=== PATIENT | male | born 1945 | race Caucasian/White ===

== ENCOUNTER 2019-02-14 01:14 | Observation (INO) | payer MEDICARE, OTHER ==
[~2019-02-14] VITALS: Ht 185.4 cm; Wt 79.8 kg
[2019-02-14] VITALS (21 sets, daily range): BP systolic 71–133; BP diastolic 49–119
[~2019-02-14 01:14] MED LIST: ACETAMINOPHEN 500 MG TAB PO ONE; ASCO-182 PO; ASPI81TA94 PO; CELECOXIB 200 MG CAP PO ONE; CHOL10005 PO; PREGABALIN 75 MG CAPSULE PO ONE; SILD25TA6 PO
[2019-02-14] MEDS ORDERED: ROPIVACAINE 0.2% 400 MG/200ML 250 ML CONINFUS ONE (06:15)
[2019-02-14] MEDS ORDERED: FAMOTIDINE 20 MG TAB PO ONE (06:15)
[2019-02-14] MEDS ORDERED: ceFAZolin(*) 2GM/D5W 50ML 50 ML IVPB ONE (06:15)
[2019-02-14] MEDS ORDERED: NORMOSOL R SOLN(*) 1000 ML BAG 1,000 ML IV PRN (06:15)
[2019-02-14] MEDS ORDERED: LIDOCAINE/SOD BICARB 8.4% SYR ID ONE (06:15)
[2019-02-14] MEDS ORDERED: ROPIVACAINE/EPI/CLONIDINE/KET 50 ML SYRINGE INJ ONE (06:15)
[2019-02-14] MEDS ORDERED: MIDAZOLAM 2 MG/2 ML VIAL IVP PRN (06:15)
[2019-02-14] MEDS ORDERED: PREGABALIN 75 MG CAPSULE PO ONE (06:30)
[2019-02-14] MEDS ORDERED: CELECOXIB 200 MG CAP PO ONE (06:30)
[2019-02-14] MEDS ORDERED: ACETAMINOPHEN 500 MG TAB PO ONE (06:30)
[2019-02-14] MEDS ORDERED: ONDANSETRON 4 MG/2 ML VIAL ONE (09:20)
[2019-02-14] MEDS ORDERED: PROPOFOL EMUL(*) 10MG/ML 20 ML 20 ML ONE (09:20)
[2019-02-14] MEDS ORDERED: DEXAMETHASONE SOD PHOS 10MG/ML ONE (09:20)
[2019-02-14] MEDS ORDERED: ROPIVACAINE 0.2% 20 ML VIAL ONE (09:20)
[2019-02-14] MEDS ORDERED: ROPIVACAINE 0.5% 20 ML VIAL ONE (09:20)
--- NOTE | 2019-02-14 09:52 | RADIOLOGY IMAGING REPORT ---
FACILITY: [facility] [place] PATIENT NAME: Rojas Guillaume : 1945 MR: [id number] V: [id number] EXAM DATE: ORDERING PHYSICIAN: ABEBA BREAUX TECHNOLOG[place]: [place] [facility] [place] Rojas Guilla[place] : 1945 Visit/Account:[id number] Date of Sevice: 02/14/2019 Exam type: C-ARM FLUORO 1 HR History: LEFT TOTAL ANKLE ARTHROPLASTY Comparison: None. Findings: Two intraoperative some spot views of the ankle are submitted. There is no left or right marker to d etermine laterality. Images demonstrate a total ankle arthroplasty in good anatomic alignment. The total fluoroscopy dose is 0.78069 mGray per meter squared IMPRESSION: 1. As above Report Dictated By: Roz Lorenzo MD at 02/14/2019 9:43 AM Report E-Signed By: Roz Lorenzo MD at 02/14/2019 9:45 AM WSN:[email or web address]
[2019-02-14] MEDS ORDERED: fentaNYL CITR 100 MCG/2 ML AMP ONE (10:13)
[2019-02-14] MEDS ORDERED: KETOROLAC 30 MG/ML VIAL ONE (10:13)
[2019-02-14] MEDS ORDERED: MAGNESIUM CITRATE 300 ML BTL PO PRN (10:35)
[2019-02-14] MEDS ORDERED: ONDANSETRON 4 MG/2 ML VIAL IVP PRN (10:35)
[2019-02-14] MEDS ORDERED: KETOROLAC 30 MG/ML VIAL IVP PRN (10:35)
[2019-02-14] MEDS ORDERED: FLUSH 10 ML SYR IVP PRN (10:35)
[2019-02-14] MEDS ORDERED: KCL/D5LR 20 MEQ/1000 ML PREMIX 1,000 ML IV PRN (10:35)
[2019-02-14] MEDS ORDERED: BISACODYL 10 MG SUPP PR PRN (10:35)
[2019-02-14] MEDS ORDERED: PROMETHAZINE 25 MG/ML 1 ML AMP IVP PRN (10:35)
[2019-02-14] MEDS ORDERED: ACETAMINOPHEN 500 MG TAB PO PRN (10:35)
[2019-02-14] MEDS ORDERED: MAGNESIUM HYDROXIDE* 30ML UDCP PO PRN (10:35)
[2019-02-14] MEDS ORDERED: diphenhydrAMINE 25 MG CAP PO PRN (10:35)
[2019-02-14] MEDS ORDERED: oxyCODON/ACET (*)5/325MG (CII) 1 TAB TAB PO PRN (10:35)
--- NOTE | 2019-02-14 11:25 | OPERATIVE REPORT 1 ---
EVENT DATE: February 14, 2019 SURGEON: Trip Becerril MD ANESTHESIOLOGIST: Steven Denton MD ANESTHESIA: General. TICKET TAKER FERRYBOAT: Carlos Dawn PA-C PREOPERATIVE DIAGNOSIS Severe degenerative arthrosis of the ankle. POSTOPERATIVE DIAGNOSIS Severe degenerative arthrosis of the ankle. PROCEDURE PERFORMED Left total ankle replacement using the Integra Tornier ankle. TOURNIQUET TIME Under 2 hours. DESCRIPTION OF PROCEDURE The patient was brought to the operating room and placed in a supine position and a bump placed under the left hip, aligning the left lower extremity. The left lower extremity was prepped and draped in normal sterile fashion using Prevail. Sterile stockinettes, sterile U-drape, and sterile extremity drape were placed on the lower extremity. Stockinette was incised above the knee and held with Coban. An Esmarch was then used to exsanguinate the lower extremity. The tourniquet was turned up to 300 mmHg. An anterior incision was made just lateral to the anterior tibialis tendon. The skin was incised and bluntly dissected down to the subcutaneous tissue. The subcutaneous tissue was bluntly dissected down to the retinaculum. The retinaculum was incised and we identified the neurovascular bundle. It was pushed off laterally. We were able to go directly down to the ankle joint. We did subperiosteal dissection medially and laterally across the ankle without any difficulty. We were able to get into the ankle joint and found out there was significant degenerative arthrosis of the ankle with significant anterior spurring. The first thing we did was taken an osteotome and resect the anterior spurs off of the distal tibia. Once those were resected, I then placed my alignment guide starting at the tibial tuberosity. I made a small incision and then placed a pin down the tibial tuberosity and then placed our alignment guide. I brought the alignment guide down to the tibial plafond. Once I had identified exactly where the tibial plafond was, I set my second pin in the alignment guide just on the medial side. Once that aligned, I then brought the alignment guide up 8 mm from my resection. I then first trialed the #2 guide. When we placed a #2 on there, I brought fluoroscopy in, checked on AP, oblique, and lateral and found that we had I think good sizing with the #2. We aligned the rotation, we aligned the medial lateral and the varus valgus. Once that was completely lined up using fluoroscopy in both the AP and the lateral, I then pinned the [address] in [address]. Three on the medial side and three on the lateral side. We then used an oscillating saw to transect the distal tibia. Once that was resected, I took the 2 guide off, removed the pins, finished the medial and lateral gutter guide cuts with a osteotome. I removed then the distal tibia cut bone. Once that was completely removed, I then was able to look at my talus. Off of the tibial guide, I actually placed a talar pin under fluoroscopy to make sure we had good positioning of the talar pin which we did. I then placed my talar cutting guide on the on tibia. We used 2 paddles, we used lamina spreaders to make sure the paddles were both touching the top of the dome of the talus. I brought fluoroscopy in to make sure they were fitting correctly. Once they were fitting correctly, I then pinned my talar cutting jig. Once I had pinned my talar cutting jig, I removed the cutting jig and then we used the oscillating saw to transect the top of the talus over top of the pins using them as a guide. I then removed all of the pins. I removed the talar bone and removed any bone that was posteriorly in the ankle that was left from the tibial cutting. Once I was done, we then went to do our anterior chamfer. I placed the anterior chamfer guide in, checked on fluoroscopy and found that there were still a lot of osteophytes. I had removed the osteophytes off the anterior portion of the talus. Once that was done, I was able to get the talar cutting guide in the right position. I then pinned the talar cutting guide and then used the cutting jig to do my anterior chamfer. I removed the anterior cutting guide and anterior chamfer guide. I then used a rongeur to finish the anterior chamfer portion. At this point, we trialed a #2 8 mm tibia with the talar lateral chamfer cutting in. Once that was done, I brought fluoroscopy in, found that I had good position of the talus cutting guide. I then took the tibial implant out and then I drilled the prince hole into the lateral chamfer guide, placed the prince locking mechanism in. I then did the lateral chamfer without any difficulty using a reciprocal saw. Once the lateral chamfer was removed, I removed the lateral chamfer guide. At this point, we trialed our implants. We did a 2 tibia, 2 talus with an 8 mm. I thought there was still a lot of laxity. We went all the way up to 11 mm. At that point, there was still a little bit of verus laxity but I think it was appropriately held in position. Once that was determined on AP and lateral with the trial guides and the range of motion, we did an Achilles tendon lengthening. Three percutaneous holes were done through the posterior aspect of the Achilles getting now almost full motion, 20-degrees of dorsiflexion, 40-degrees of plantar flexion. At this point, we washed out with normal saline and then we placed out final implants. We did a 2 tibial, 11 mm poly with 2 talus. These again were all the Tornier Integra ankle. From here, we brought fluoroscopy in and made sure we had excellent alignment. Everything was in excellent alignment in AP and lateral. He did have an osteophyte on the lateral fibula which at this point, I made a small incision over the distal fibula, opened it up, and I was able to remove this lateral osteophyte without any difficulty. I left the distal fibular osteophyte due to the fact that most likely it was involved with the ligament. I just removed the lateral osteophyte to make it a little more easy to get into shoes. At this point, we closed the retinaculum back using 2-0 Vicryl. We then closed the skin using 3-0 Monocryl, 4-0 Monocryl, and Prineo adaptic 4 x 4s with bulky Hsieh dressing. The patient went to recovery. There were no complications. RICHARD
[2019-02-14] MEDS: ceFAZolin(*) 1 GM VIAL 1 GM in NS(*) 0.9% 100 ML MINI-BAG 100 ML IVPB SCH ×2 (15:08→22:43)
[2019-02-14] MEDS ORDERED: ceFAZolin(*) 1 GM VIAL 1 GM in NS(*) 0.9% 100 ML MINI-BAG 100 ML IVPB SCH (17:00)
--- NOTE | 2019-02-14 17:13 | NUR ---
Physical Therapy Impression Pt participated in extensive functional mobility training with multiple assistive devices and is safe for DC when medically appropriate. PT to follow-up tomorrow morning for additional gait and stair training. Physical Therapy Goals 1. Mod I bed mobility. 2. SBA transfers. 3. SBA gait with appropriate assistive device x 150'. 4. Ascend/descend 3 stairs CGA. 5. Independently maintain NWB to L LE. Patient's Goals
[2019-02-15 02:48] VITALS: BP 102/67
[2019-02-15] MEDS: ceFAZolin(*) 1 GM VIAL 1 GM in NS(*) 0.9% 100 ML MINI-BAG 100 ML IVPB SCH (06:36)
[2019-02-15 07:10] VITALS: BP 99/65
[2019-02-15 08:37] VITALS: Ht 185.4 cm; Wt 79.8 kg
--- NOTE | 2019-02-15 09:23 | DISCHARGE SUMMARY ---
HOSPITAL COURSE Rojas underwent total ankle replacement on 02/14/19 without any issues. He had a peripheral nerve block placed before the surgery and surgery went without complications. He had done extremely well overnight. He has had no pain. He is up eating this morning, already worked with Physical Therapy, taking oral pain meds. The block is still working. I will discharge him home, nonweightbearing 8 weeks. Follow up in 2 weeks in the office. The bandage is to be left on at all times. We will take it off in the office. If he has any fever, chills, or rigors, he is to call the office. I will see him back in 2 weeks' time. RICHARD
--- NOTE | 2019-02-15 13:20 | NUR ---
Physical Therapy Impression Pt safe for DC when medically appropriate. Physical Therapy Goals 1. Mod I bed mobility. 2. SBA transfers. 3. SBA gait with appropriate assistive device x 150'. 4. Ascend/descend 3 stairs CGA. 5. Independently maintain NWB to L LE. Patient's Goals
== END 2019-02-15 10:11 | disposition home or self-care (01) ==
LOC: OR 01:14 → MED 11:05 → UNDOADMOB 11:05
PROVIDERS: ADMIT Orthopaedic Surgery; ATTEND Orthopaedic Surgery
DX: M19.072 Primary osteoarthritis, left ankle and foot (principal)
CPT/HCPCS: 27702; 76000; 97116; 97161; 97530; A9270; C1776; G0378; J0690; J1100; J1885; J2250; J2405; J2704; J2795; J3010